=== PATIENT | female | born 1995 | race Caucasian/White ===

== ENCOUNTER 2020-09-05 07:30 | Emergency (ER) | payer OTHER ==
[~2020-09-05] VITALS: Ht 157.5 cm; Wt 74.8 kg
[2020-09-05 07:32] VITALS: BP 136/86
[2020-09-05] MEDS ORDERED: BACITRACIN-POL3.5 GM OPHTHALMIC (07:44)
[2020-09-05] MEDS ORDERED: DOXYCYCLINE 10100 MG PO (07:44)
== END 2020-09-05 08:10 | disposition home or self-care (01) ==
LOC: ER 07:30
DX: L60.0 Ingrowing nail (principal); Z88.0 Allergy status to penicillin

== ENCOUNTER → 2020-11-25 | Outpatient (CLI) | payer OTHER ==
[~2020-11-25] MED LIST: BACITRACIN-POL3.5 GM OPHTHALMIC; DOXYCYCLINE 10100 MG PO
== END ==
LOC: LAB 08:40
PROVIDERS: ATTEND Specialist
DX: Z20.822 Contact with and (suspected) exposure to COVID-19 (principal)

== ENCOUNTER 2021-03-31 10:27 | Emergency (ER) | payer OTHER ==
[~2021-03-31] VITALS: Ht 157.5 cm; Wt 78.0 kg
[2021-03-31] MEDS ORDERED: MEDROXYPRO150 MG/1 M IM (10:35)
[2021-03-31] MEDS ORDERED: PROAIR HFA8.5 GM INH (10:35)
[2021-03-31] MEDS ORDERED: MOBIC15 MG PO (11:43)
[2021-03-31 12:00] VITALS: BP 115/83
== END 2021-03-31 12:00 | disposition home or self-care (01) ==
LOC: ER 10:27
DX: S53.402A Unspecified sprain of left elbow, initial encounter (principal); J45.909 Unspecified asthma, uncomplicated; Z88.0 Allergy status to penicillin; W10.8XXA Fall (on) (from) other stairs and steps, initial encounter; Y93.89 Activity, other specified; Y92.89 Other specified places as the place of occurrence of the external cause; Y99.8 Other external cause status